=== PATIENT | male | born 1950 | race African-American/Black ===

== ENCOUNTER 2018-05-29 10:35 | Inpatient (IN) | payer MEDICARE, MEDICAID ==
[~2018-05-29] VITALS: Ht 182.9 cm; Wt 97.1 kg
[~2018-05-29 10:35] MED LIST: DEPAKOTE
[2018-05-29] MEDS ORDERED: SODIUM CHLORIDE 0.9% 1,000 ML IV ONE (11:06)
[2018-05-29 11:34] LABS: BASOPHILS % 0.2 % (0.0-2.0); HEMOGLOBIN. 13.3 g/dL (14.0-18.0); LYMPHOCYTES % 11.8 % (20.0-50.0); MEAN CORPUSCULAR HEMOGLOBIN 30.8 pg (28.0-32.0); MEAN CORPUSCULAR VOLUME 90.6 fL (80.0-94.0); MEAN PLATELET VOLUME 8.3 fl (7.4-10.4); MONOCYTES % 8.6 % (2.0-8.0); NEUTROPHILS % 79.4 % (40.0-76.0); PLATELET 172 x1000/uL (130-400); RED BLOOD CELL COUNT 4.31 mill/uL (4.7-6.1); RED CELL DISTRIBUTION WIDTH 14.8 % (11.6-14.6)
[2018-05-29 11:40] LABS: CHLORIDE 96 mEq/L (98-107)
[2018-05-29 11:44] LABS: ETHANOL BLOOD < 10 mg/dL
[2018-05-29 13:27] LABS: CLARITY URINE CLEAR (CLEAR); COLOR URINE YELLOW (YELLOW); KETONES URINE NEGATIVE (NEGATIVE); LEUKOCYTE ESTERASE URINE NEGATIVE (NEGATIVE); NITRITE URINE NEGATIVE (NEGATIVE); OCCULT BLOOD URINE NEGATIVE (NEGATIVE); PH URINE 6.5 (4.5-8.0); PROTEIN URINE NEGATIVE (NEGATIVE); SPECIFIC GRAVITY URINE 1.014 (1.005-1.030)
[2018-05-29 14:00] LABS: *AMPHETAMINES SCREEN URINE NEGATIVE (NEGATIVE); *BARBITURATES SCREEN URINE NEGATIVE (NEGATIVE); *BENZODIAZEPINES SCREEN URINE NEGATIVE (NEGATIVE); *COCAINE SCREEN URINE NEGATIVE (NEGATIVE)
[2018-05-29 14:02] LABS: CANNABINOID URINE SCREEN NEGATIVE (NEGATIVE); METHADONE URINE SCREEN NEGATIVE (NEGATIVE); OPIATES URINE SCREEN NEGATIVE (NEGATIVE); PHENCYCLIDINE URINE SCREEN NEGATIVE (NEGATIVE)
[2018-05-29] MEDS ORDERED: CLONIDINE 0.1MG TABLET PO PRN (18:00)
[2018-05-29] MEDS ORDERED: MAGNESIUM/ALUMINUM HYDROXIDE/SIMETHICONE 30ML UDC PO PRN (18:00)
[2018-05-29] MEDS ORDERED: MAGNESIUM HYDROXIDE 400MG/5ML 30ML UDC PO PRN (18:00)
[2018-05-29] MEDS ORDERED: TEMAZEPAM 15MG CAPSULE PO PRN (18:00)
[2018-05-29] MEDS ORDERED: ONDANSETRON HCL 4MG/2ML INJ IV PRN (18:00)
[2018-05-29] MEDS ORDERED: ACETAMINOPHEN 325MG TABLET PO PRN (18:00)
[2018-05-29] MEDS ORDERED: IPRATROPIUM/ALBUTEROL 0.5-3(2.5)MG/3ML NEB INH PRN (18:00)
[2018-05-29 20:10] VITALS: BP 99/61
[2018-05-29] MEDS: OXYBUTYNIN CHLORIDE 5MG TABLET PO SCH (21:52)
[2018-05-29] MEDS: SODIUM CHLORIDE 0.9% INJ 3ML FLUSH IVF SCH (21:53)
[2018-05-29] MEDS ORDERED: MVI, ADULT NO.1 10 ML, FOLIC ACID 1 MG, THIAMINE HCL 100 MG in SODIUM CHLORIDE 0.9% 1,0... IV SCH ×4 (22:00)
[2018-05-29] MEDS ORDERED: OXYB5TAB11 MT (22:12)
[2018-05-29] MEDS: GUAIFENESIN 200MG/10ML SUGAR FREE UDC PO PRN (23:29)
[2018-05-30] VITALS: BP 112/68
[2018-05-30 04:00] VITALS: BP 113/75
[2018-05-30] MEDS: SODIUM CHLORIDE 0.9% INJ 3ML FLUSH IVF SCH (05:03)
[2018-05-30] MEDS: OXYBUTYNIN CHLORIDE 5MG TABLET PO SCH (05:03)
[2018-05-30 08:00] VITALS: BP 130/72
[2018-05-30] MEDS: GUAIFENESIN 200MG/10ML SUGAR FREE UDC PO PRN (08:52)
[2018-05-30] MEDS ORDERED: NICOTINE 21MG PATCH TD SCH (09:00)
[2018-05-30] MEDS ORDERED: ASPIRIN 81MG EC TABLET PO SCH (09:00)
[2018-05-30] MEDS ORDERED: AMLODIPINE 10MG TABLET PO SCH (09:00)
[2018-05-30] MEDS ORDERED: ENOXAPARIN 40MG/0.4ML SYR SUBCUT SCH (09:00)
== END 2018-05-30 14:21 | disposition left against medical advice (07) | DRG 65 ==
LOC: ER 10:35 → 8WST 17:22 → EDBEDREQ 17:25 → ENRESERV 19:08
PROVIDERS: ADMIT Internal Medicine; ATTEND Internal Medicine
DX: I63.9 Cerebral infarction, unspecified (principal); E44.1 Mild protein-calorie malnutrition; R29.6 Repeated falls; N31.9 Neuromuscular dysfunction of bladder, unspecified; I10 Essential (primary) hypertension; S80.211A Abrasion, right knee, initial encounter; S80.212A Abrasion, left knee, initial encounter; E78.00 Pure hypercholesterolemia, unspecified; F17.200 Nicotine dependence, unspecified, uncomplicated; R26.81 Unsteadiness on feet; F31.9 Bipolar disorder, unspecified; Z53.21 Procedure and treatment not carried out due to patient leaving prior to being seen by health care provider; X58.XXXA Exposure to other specified factors, initial encounter; Y93.89 Activity, other specified; Y92.89 Other specified places as the place of occurrence of the external cause; Y99.8 Other external cause status; Z82.49 Family history of ischemic heart disease and other diseases of the circulatory system; Z59.0 Homelessness; Z68.29 Body mass index [BMI] 29.0-29.9, adult
CPT/HCPCS: 36415; 71045; 73562; 80061; 80305; 93880; 96360; 97162; 99285; G0482; J1650; J3411; J3490; J7030; J7050

== ENCOUNTER 2018-08-12 05:11 | Emergency (ER) | payer MEDICARE, MEDICAID ==
[~2018-08-12 05:11] MED LIST changes: +OXYB5TAB11 MT
== END 2018-08-12 10:00 | disposition left against medical advice (07) ==
LOC: ER 05:11
DX: F98.9 Unspecified behavioral and emotional disorders with onset usually occurring in childhood and adolescence (principal); Z53.21 Procedure and treatment not carried out due to patient leaving prior to being seen by health care provider

== ENCOUNTER 2018-10-16 17:05 | Emergency (ER) | payer MEDICARE, MEDICAID ==
[~2018-10-16] VITALS: Ht 185.4 cm; Wt 64.0 kg
[2018-10-16 17:11] VITALS: BP 158/98
== END 2018-10-16 20:58 | disposition left against medical advice (07) ==
LOC: ER 17:05
DX: M79.10 Myalgia, unspecified site (principal); Z53.21 Procedure and treatment not carried out due to patient leaving prior to being seen by health care provider

== ENCOUNTER 2019-02-11 22:24 | Emergency (ER) | payer MEDICARE ==
[~2019-02-11] VITALS: Ht 177.8 cm; Wt 78.0 kg
[2019-02-12 03:28] LABS: BASOPHILS % 0.4 % (0.0-2.0); EOSINOPHILS % 2.1 % (0.0-5.0); HEMATOCRIT. 38.5 % (42.0-52.0); HEMOGLOBIN. 13.5 g/dL (14.0-18.0); LYMPHOCYTES % 27.2 % (20.0-50.0); MEAN CORPUSCULAR HEMOGLOBIN 31.3 pg (28.0-32.0); MEAN CORPUSCULAR VOLUME 89.2 fL (80.0-94.0); MEAN PLATELET VOLUME 7.6 fl (7.4-10.4); NEUTROPHILS % 62.3 % (40.0-76.0); PLATELET 194 x1000/uL (130-400); RED BLOOD CELL COUNT 4.31 mill/uL (4.7-6.1); RED CELL DISTRIBUTION WIDTH 13.9 % (11.6-14.6)
[2019-02-12] MEDS ORDERED: DIVALPROEX SODIUM 250MG DR TABLET PO ONE (03:30)
[2019-02-12 03:36] LABS: CHLORIDE 109 mEq/L (98-107)
[2019-02-12 03:39] LABS: ETHANOL BLOOD < 10 mg/dL
[2019-02-12 03:47] LABS: VALPROIC ACID < 3.0 ug/mL (50-100)
[2019-02-12] MEDS ORDERED: ARIPIPRAZOLE 10MG TABLET PO ONE (04:00)
[2019-02-12 07:30] VITALS: BP 130/87
== END 2019-02-12 14:14 | disposition home or self-care (01) ==
LOC: ER 22:24
DX: F22 Delusional disorders (principal); R45.851 Suicidal ideations; G40.909 Epilepsy, unspecified, not intractable, without status epilepticus; I10 Essential (primary) hypertension; Z59.0 Homelessness
CPT/HCPCS: 36415; 80048; 80165; 80307; 80320; 80329; 99284; G0480

== ENCOUNTER 2019-02-21 16:34 | Emergency (ER) | payer MEDICARE ==
[~2019-02-21] VITALS: Ht 175.3 cm; Wt 77.0 kg
[2019-02-21 18:46] VITALS: BP 143/93
== END 2019-02-21 18:50 | disposition home or self-care (01) ==
LOC: ER 16:34
DX: Z76.0 Encounter for issue of repeat prescription (principal); F20.9 Schizophrenia, unspecified; R10.31 Right lower quadrant pain; I10 Essential (primary) hypertension; F43.10 Post-traumatic stress disorder, unspecified
CPT/HCPCS: 99283